=== PATIENT | female | born 1960 | race Caucasian/White ===

== ENCOUNTER 2017-03-10 18:33 | Inpatient (IN) | payer OTHER ==
[~2017-03-10] VITALS: Ht 157.5 cm; Wt 80.7 kg
[2017-03-10] MEDS ORDERED: SOD CHLORIDE 0.9% 500 ML IV STA (19:09)
[2017-03-10 19:27] LABS: ADD SCAN DIFF NO
[2017-03-10 19:30] LABS: BASOPHILS % 0.1 % (0.0-2.0); EOSINOPHILS % 0.2 % (0.0-7.0); HEMATOCRIT 40.6 % (37.0-47.0); HEMOGLOBIN 13.3 g/dl (12.0-16.0); LYMPHOCYTES % 10.9 % (15.0-51.0); MEAN CORPUSCULAR HGB CONC 32.8 g/dl (32.0-37.0); MEAN CORPUSCULAR VOLUME 88.6 fl (82.0-101.0); MEAN PLATELET VOLUME 9.2 fl (7.4-10.4); MONOCYTE # 0.7 10^3/ul (0.3-0.9); MONOCYTES % 7.7 % (0.0-11.0); NEUTROPHIL # 7.5 10^3/ul (1.6-7.5); NEUTROPHILS % 80.8 % (39.0-77.0); PLATELET COUNT 150 10^3/UL (140-415); RED BLOOD COUNT 4.58 10^6/ul (4.20-5.40); RED CELL DISTRIBUTION WIDTH 14.4 % (11.5-14.5); WHITE BLOOD COUNT 9.3 10^3/ul (4.8-10.8)
[2017-03-10] MEDS ORDERED: GABA100C14 PO (19:37)
[2017-03-10] MEDS ORDERED: GLIM4TAB PO (19:38)
[2017-03-10] MEDS ORDERED: CIPR500T4 PO (19:38)
[2017-03-10] MEDS ORDERED: PRAV20TA63 PO (19:38)
[2017-03-10] MEDS ORDERED: FAMO20TA18 PO (19:39)
[2017-03-10] MEDS ORDERED: BENA20TA48 PO (19:39)
[2017-03-10] MEDS ORDERED: ONDA4TAB95 PO (19:39)
[2017-03-10] MEDS ORDERED: ACET-141 PO (19:39)
[2017-03-10 19:43] LABS: ALBUMIN 4.2 g/dl (3.3-4.9); CHLORIDE 99 mmol/L (97-110)
[2017-03-10 19:44] LABS: POTASSIUM 3.9 mmol/L (3.5-5.1); SODIUM 135 mmol/L (135-144)
[2017-03-10 19:46] LABS: ALBUMIN/GLOBULIN RATIO 1.05; ALKALINE PHOSPHATASE 61 IU/L (42-121); ANION GAP 21 (8-16); ASPARTATE AMINO TRANSFERASE 44 IU/L (15-46); BILIRUBIN,INDIRECT 0.1 mg/dl (0-1.1); BILIRUBIN,TOTAL 0.1 mg/dl (0.2-1.3); CARBON DIOXIDE 19 mmol/L (21-31); CREATININE 2.12 mg/dl (0.44-1.00); TOTAL PROTEIN 8.2 g/dl (6.1-8.1)
[2017-03-10 19:47] LABS: ALANINE AMINOTRANSFERASE 51 IU/L (13-69); BLOOD UREA NITROGEN 37 mg/dl (7-20); CALCIUM 8.6 mg/dl (8.4-10.2)
[2017-03-10 19:49] LABS: GLUCOSE 43 mg/dl (70-220)
[2017-03-10] MEDS ORDERED: DEXTROSE 50% 50 ML SYRINGE IV STA (19:50)
[2017-03-10] MEDS ORDERED: DEXTROSE 50% 50 ML SYRINGE ONE (19:51)
--- NOTE | 2017-03-10 19:59 | ERA ---
ER Documentation Chief Complaint Date/Time DATE: 03/10/17 TIME: 19:57 Chief Complaint PT [facility] FOR HYPOGLYCEMIA BS WAS 29 HPI 56-year-old woman brought in by EMS for hypoglycemia while at her doctor's office. She had a syncopal episode while there blood sugar was low to 29, she was given glucose with an improvement in mental status. Over the last 4-5 days patient has had multiple episodes of clear nonbloody nonbilious emesis and loose stools and diarrhea, but denies blood per rectum or melena. Patient was recently diagnosed with prediabetes and has started using glimepiride daily, and about 2 days she was prescribed ciprofloxacin (? UTI), but she does not know for what. She denies cough, no chest pain or shortness of breath, no rash , no calf or leg swelling, no vomiting or diarrhea. Syncopal episode today was witnessed there was no seizure activity. Patient was transported here by EMS without further complications. ROS All systems reviewed and are negative except as per history of present illness. Medications Home Meds Reported Medications Acetaminophen* (Acetaminophen*) 500 MG Extra Strength Tablet, 500 MG PO Q4H Y for PAIN AND OR ELEVATED TEMP, TAB 03/10/17 Benazepril Hcl* (Benazepril Hcl*) 20 Mg Tablet, 20 MG PO DAILY, #30 TAB 03/10/17 Famotidine* (Famotidine*) 20 Mg Tablet, 20 MG PO DAILY, #30 TAB 03/10/17 Ondansetron Hcl* (Ondansetron Hcl*) 4 Mg Tablet, 4 MG PO Q6H Y for NAUSEA AND/ OR VOMITING, TAB 03/10/17 Glimepiride* (Glimepiride*) 4 Mg Tablet, 4 MG PO DAILY, TAB 03/10/17 Ciprofloxacin Hcl* (Ciprofloxacin Hcl*) 500 Mg Tablet, 500 MG PO BID, #14 TAB 03/10/17 Pravastatin Sodium* (Pravastatin Sodium*) 20 Mg Tablet, 20 MG PO HS, TAB 03/10/17 Gabapentin* (Gabapentin*) 100 Mg Capsule, 200 MG PO QHS, #180 CAP 03/10/17 Allergies Allergies: Coded Allergies: No Known Allergy (Unverified , 03/10/17) PMhx/Soc Prediabetic, hypercholesterolemia, hypertension History of Surgery: Yes () Hx Cardiac Disorders: Yes (HTN, CHOLESTEROL) Hx Miscellaneous Medical Probl: Yes (DM) Hx Alcohol Use: No Hx Substance Use: No Hx Tobacco Use: No Smoking Status: Never smoker FmHx Family History: diabetes Physical Exam Vitals Vital Signs Date Time Temp Pulse Resp B/P Pulse Ox O2 Delivery O2 Flow Rate FiO2 03/10/17 18:42 98.6 83 23 128/60 100 Physical Exam GENERAL: Well-developed, well-nourished, well-hydrated, in no apparent distress , looks nontoxic in appearance HEENT: Moist mucous membranes, pink conjunctiva, no cervical spine tenderness or step-off deformities, no goiter, no jaundice or icterus, extraocular movements intact without pain. No submandibular induration, and no pharyngeal erythema NEURO: Alert and oriented 3, cranial nerves II through XII intact bilaterally, pupils equal round reactive to light, no focal deficits or facial asymmetry, sensation intact distally Strength 5/5 in upper and lower extremities bilaterally CARDIAC: Regular rate and rhythm, no murmurs rubs or gallops LUNGS: Clear bilaterally no wheezing crackles or stridor ABDOMEN: Soft nontender, no guarding, no rigidity, no rebound, no psoas sign no obturator sign. Normoactive bowel sounds SKIN: Warm and dry to touch, no abrasions, contusions, or hematomas, no lacerations, no ecchymosis, no target lesions, and without ulcers EXTREMITIES: No clubbing cyanosis or edema, calves are bilaterally symmetrical, no Homans sign, no popliteal cord sign. Distal pulses equal and bilateral PSYCH: Normal affect without agitation or irritability Result Diagram: 03/10/17191403/10/171914 Results 24 hrs Laboratory Tests Test 03/10/17 18:37 03/10/17 19:15 03/10/17 20:57 Bedside Glucose 83mg/dL 111mg/dL White Blood Count 9.310^3/ul Red Blood Count 4.5810^6/ul Hemoglobin 13.3g/dl Hematocrit 40.6% Mean Corpuscular Volume 88.6fl Mean Corpuscular Hemoglobin 29.0pg Mean Corpuscular Hemoglobin Concent 32.8g/dl Red Cell Distribution Width 14.4% Platelet Count 82892^3/UL Mean Platelet Volume 9.2fl Neutrophils % 80.8% Lymphocytes % 10.9% Monocytes % 7.7% Eosinophils % 0.2% Basophils % 0.1% Nucleated Red Blood Cells % 0.0/100WBC Neutrophils # 7.510^3/ul Lymphocytes # 1.010^3/ul Monocytes # 0.710^3/ul Eosinophils # 0.010^3/ul Basophils # 0.010^3/ul Nucleated Red Blood Cells # 0.010^3/ul Urine Color LT. YELLOW Urine Clarity CLEAR Urine pH 5.0 Urine Specific [place] 1.015 Urine Ketones NEGATIVE Urine Nitrite NEGATIVE Urine Bilirubin NEGATIVE Urine Urobilinogen 0.2 E.U./dL Urine Leukocyte Esterase NEGATIVE Urine Hemoglobin NEGATIVE Urine Glucose NEGATIVE% Urine Total Protein NEGATIVE Sodium Level 135mmol/L Potassium Level 3.9mmol/L Chloride Level 99mmol/L Carbon Dioxide Level 19mmol/L Anion Gap 21 Blood Urea Nitrogen 37mg/dl Creatinine 2.12mg/dl Glucose Level 43mg/dl Calcium Level 8.6mg/dl Total Bilirubin 0.1mg/dl Direct Bilirubin 0.00mg/dl Indirect Bilirubin 0.1mg/dl Aspartate Amino Transf (AST/SGOT) 44IU/L Alanine Aminotransferase (ALT/SGPT) 51IU/L Alkaline Phosphatase 61IU/L Troponin I < 0.012ng/ml Total Protein 8.2g/dl Albumin 4.2g/dl Globulin 4.00g/dl Albumin/Globulin Ratio 1.05 Lipase 171U/L Current Medications Medications (Trade) Dose Ordered Sig/Danna Route PRN Reason Start Time Stop Time Status Last Admin Dose Admin Sodium Chloride (NS) 500 ml @ 500 mls/hr Q1H STAT IV 03/10/17 19:09 03/10/17 20:08 DC 03/10/17 20:03 Dextrose (D50w Syringe) 50 ml ONCE STAT IV 03/10/17 19:50 03/10/17 19:51 DC 03/10/17 20:03 Dextrose (D50w Syringe) 50 ml STK-MED ONCE .ROUTE 03/10/17 19:51 03/10/17 19:52 DC Procedures/[facility] IV line was established patient was placed on panel monitor rhythm strip revealed a sinus rhythm at about 80 bpm with upright P and T waves. Patient was afebrile. EKG performed, read by me: 81 bpm, normal sinus rhythm, normal axis, no acute ST segment changes, narrow QRS complex, with good R-wave progression in precordial leads. Patient developed another episode of altered mentation and hypoglycemia, blood sugar was about 43, we treated her here with dextrose 25 g IV and also gave her food and juice to eat. She had immediate improvement in mental status and blood sugar was rechecked and was normal. CBC was unremarkable, electrolytes revealed dehydration and acute kidney injury with a BUN/creatinine of 37/2.1, liver function tests were normal, troponin was negative. Urine analysis was negative for infection. I administered about 1 L normal saline intravenously, and patient required another dose of dextrose 25 g IV for a second episode of hypoglycemia. CT scan of the abdomen and pelvis was performed, given the patient's symptoms. There was no acute inflammatory or infectious pathology noted, vascular structures were unremarkable. Please refer radiologist's dictation for full report. Patient will be admitted to telemetry setting for continued medical management and endocrinology consultation. Departure Diagnosis: Primary Impression: Hypoglycemia Additional Impressions: Dehydration Vomiting and diarrhea Gastroenteritis Acute kidney injury Condition: ANDREW Corona MD March 10, 2017 19:59
[2017-03-10 20:02] LABS: TROPONIN-I < 0.012 ng/ml (0.00-0.12)
--- NOTE | 2017-03-10 20:04 | RADRPT ---
PROCEDURE: CT Abdomen and Pelvis without contrast. CLINICAL INDICATION: Abdominal pelvic pain. TECHNIQUE: CT scan of the abdomen and pelvis without contrast was performed on a multidetector hig h-resolution CT scanner. The patient was scanned without intravenous contrast. Coronal and sagittal reformatted images were obtained from the axial source images. Images were reviewed on a high-resol [employer] PACS workstation. The total exam CTDI equals 16.83 mGy and the total exam DLP equals 998.35 mG y-cm. One or more of the following dose reduction techniques were used: - Automated exposure control. - Adjustment of the mA and/or kV according to patient size. - Use of iterative reconstruction technique. COMPARISON: None. FINDINGS: CT abdomen: The lung bases are remarkable for patchy subsegmental atelectasis within the lung bases bilaterally. There is a tiny calcified granuloma in the posterior right lung base. Small calcified lymph node i s seen in the subcarinal space typical of old granulomatous disease. The heart size is normal, with out pericardial thickening or effusion. The liver is normal in size and fatty infiltrated without f ocal mass or intrahepatic biliary dilatation. The spleen is normal in size and homogeneous in densi ty. The stomach is distended and filled with fluid, but is otherwise grossly unremarkable. The mckeon creas as visualized is normal. The gallbladder and biliary tree are unremarkable and there is no ev idence for biliary dilatation. The adrenal glands are symmetric and normal. The kidneys are symmet rically unremarkable as well. No renal calculus or obstructive uropathy or mass lesion is seen. The aorta is of normal caliber. There is no retroperitoneal lymphadenopathy. The parviz hepatis reg ion is clear. The bowel and mesentery, as visualized, are equally unremarkable. CT pelvis: The small bowel loops situated within the pelvis are unremarkable. The pelvic organs are normal. T he pelvic sidewalls and inguinal regions are clear. The sigmoid colon and rectum are unremarkable. No mass or adenopathy is seen. No free fluid is present. No acute inflammation is identified at thi s time. The surrounding osseous structures are remarkable for degenerative spondylosis of the spine. No ost eolytic or osteoblastic lesion is detected. IMPRESSION: 1. Diffuse fatty infiltration of the liver. 2. Benign old granulomatous disease. 3. No focal acute inflammatory process. RPTAT: HMJB .Jin Henry MD, MD Date Time Electronically viewed and signed by .Jin Henry MD, MD on 03/10/2017 20:03 .B/
[2017-03-10 20:19] LABS: URINE BILIRUBIN (Dip) NEGATIVE (NEGATIVE); URINE BLOOD (Dip) NEGATIVE (NEGATIVE); URINE COLOR LT. YELLOW (YELLOW); URINE GLUCOSE (Dip) NEGATIVE (NEGATIVE); URINE KETONES (Dip) NEGATIVE (NEGATIVE); URINE LEUKOCYTE ESTERASE (Dip) NEGATIVE (NEGATIVE); URINE NITRITE (Dip) NEGATIVE (NEGATIVE); URINE UROBILINOGEN (Dip) 0.2 E.U./dL (0.1-1.0)
[2017-03-10 20:31] LABS: ADD UMIC NO; URINE TOTAL PROTEIN (Dip) NEGATIVE (NEGATIVE)
[2017-03-10 22:23] VITALS: BP 142/70; RESP 18
[2017-03-10 23:00] VITALS: BP 142/70; PULSE 89; RESP 20; Ht 157.5 cm; Wt 80.7 kg
[2017-03-10] MEDS ORDERED: FAMOTIDINE 20 MG TAB PO PRN (23:00)
[2017-03-10] MEDS ORDERED: ACETAMINOPHEN 325 MG TAB PO PRN (23:00)
[2017-03-10] MEDS ORDERED: ONDANSETRON 4 MG INJ IV PRN (23:00)
[2017-03-10] MEDS ORDERED: DEXTROSE 5%-0.45% NACL 1,000 ML IV SCH (23:00)
[2017-03-10] MEDS ORDERED: morphine 2 MG INJ IV PRN (23:00)
[2017-03-11] MEDS: GABAPENTIN 100 MG CAP PO SCH ×2 (00:22→21:31)
[2017-03-11] MEDS: HEPARIN 5,000 UNIT/0.5 ML VIAL SC SCH ×3 (00:23→21:32)
[2017-03-11] MEDS: DEXTROSE 10% 1,000 ML IV SCH ×2 (00:54→12:36)
[2017-03-11] MEDS: ACCU-CHEK XX SCH ×6 (00:54→21:30)
[2017-03-11] MEDS ORDERED: DEXTROSE 50% 50 ML SYRINGE IV ONE (01:00)
[2017-03-11 05:09] LABS: ADD SCAN DIFF NO
[2017-03-11 05:16] LABS: BASOPHILS % 0.2 % (0.0-2.0); EOSINOPHILS % 0.5 % (0.0-7.0); HEMATOCRIT 36.5 % (37.0-47.0); LYMPHOCYTES # 1.4 10^3/ul (0.8-2.9); LYMPHOCYTES % 21.5 % (15.0-51.0); MEAN CORPUSCULAR HEMOGLOBIN 28.8 pg (29.0-33.0); MEAN CORPUSCULAR HGB CONC 32.9 g/dl (32.0-37.0); MEAN CORPUSCULAR VOLUME 87.7 fl (82.0-101.0); MEAN PLATELET VOLUME 9.5 fl (7.4-10.4); MONOCYTE # 0.7 10^3/ul (0.3-0.9); MONOCYTES % 10.2 % (0.0-11.0); NEUTROPHIL # 4.5 10^3/ul (1.6-7.5); NEUTROPHILS % 67.3 % (39.0-77.0); PLATELET COUNT 145 10^3/UL (140-415); RED BLOOD COUNT 4.16 10^6/ul (4.20-5.40); RED CELL DISTRIBUTION WIDTH 14.5 % (11.5-14.5); WHITE BLOOD COUNT 6.7 10^3/ul (4.8-10.8)
[2017-03-11 05:49] LABS: ALBUMIN 3.4 g/dl (3.3-4.9); ALBUMIN/GLOBULIN RATIO 1.03; CALCIUM 8.1 mg/dl (8.4-10.2); CREATININE 1.8 mg/dl (0.44-1.00); PHOSPHORUS 3.7 mg/dl (2.5-4.9); POTASSIUM 4.6 mmol/L (3.5-5.1); TOTAL PROTEIN 6.7 g/dl (6.1-8.1)
[2017-03-11] MEDS ORDERED: GLIMEPIRIDE 4 MG TAB PO SCH (07:30)
[2017-03-11 08:08] VITALS: BP 122/68; RESP 18
--- NOTE | 2017-03-11 08:45 | HP ---
DATE OF ADMISSION: 03/10/2017 CHIEF COMPLAINT: Hypoglycemia, altered mentation, nausea, and vomiting. HISTORY OF PRESENT ILLNESS: The patient is a 56-year-old female with a history of type 2 diabetes, hypertension, and dyslipidemia who was sent from a clinic for hypoglycemia and altered mentation. T patient reported nausea and vomiting of 3 days' duration with emesis described as nonbilious and nonbloody. She also reported diarrhea described as loose stool. The patient was recently diagnosed with diabetes and has been started on glimepiride 4 mg daily. Today, she was seen at the clinic wh ere she was found to be altered, and when her blood glucose was checked, it was 29. She was given s ome dextrose with improvement in her mentation, but 911 was called, and the patient was brought to [facility] ER by ambulance. Currently, she is admitted to the floor and is in stable condition even though her blood sugar had been fluctuating. Of note, the patient has recently been diagnosed with a UTI a nd has been taking ciprofloxacin. When the patient presented to the ER, her vitals were stable. Her point of care glucose was 83, but on BMP, it was 43. Creatinine 2.12, BUN 37, bicarbonate 19, anion gap 21. Otherwise, CBC and CMP are within normal limits. CT abdomen and pelvis without contrast shows diffuse fatty infiltration o f the liver as well as benign old granulomatous disease without focal acute inflammatory process. REVIEW OF SYSTEMS: A 12-point review of systems was performed and negative except as mentioned in H PI. PAST MEDICAL HISTORY: As per HPI. PAST SURGICAL HISTORY: . SOCIAL HISTORY: Denied a history of tobacco, alcohol, or illicit drug use. ALLERGIES: NO KNOWN DRUG ALLERGIES. HOME MEDICATIONS: 1. Benazepril. 2. Pravastatin. 3. Tylenol. 4. Gabapentin. 5. Pepcid. 6. Zofran. 7. Glimepiride. 8. Ciprofloxacin. PHYSICAL EXAMINATION: VITAL SIGNS: Stable. GENERAL: No acute distress, answering questions appropriately. HEENT: No obvious head deformity. Pupils are reactive to light. Extraocular muscles intact. CARDIOVASCULAR: Regular rate and rhythm with no extra heart sounds. LUNGS: Clear. ABDOMEN: Soft, nontender, nondistended. Positive bowel sounds. EXTREMITIES: No edema. NEUROLOGIC: No focal deficits. LABORATORY: Pertinent positive results as mentioned in the HPI. IMPRESSION: 1. Hypoglycemia. 2. Altered mentation secondary to hypoglycemia, currently resolved. 3. Presumed acute kidney injury from prerenal etiology as a result of vomiting and diarrhea. 4. Diarrhea. 5. History of hypertension. 6. History of diabetes. 7. History of dyslipidemia. PLAN: Given her blood glucose has been fluctuating even on D5 IV fluid, I will switch to D10. She will be placed on a diabetic diet. We will monitor her blood glucose frequently. We will follow up on her kidney function closely, but it seems like it is an acute event, even though it is possibly acute on chronic, given history of diabetes and hypertension. In any case, we will avoid any nephro toxins, and if no improvement in kidney function or if it worsens, we will obtain a renal ultrasound and nephrology consult. The patient was recently diagnosed with UTI, so we will check a urine cult ure. In the meantime, we will continue her home Cipro. Further workup and management per clinical course. Dictated By: ABHIJEET COSTA/ILEANA Conf#: [id number] DID#: [id number]
[2017-03-11] MEDS: CIPROFLOXACIN 500 MG TAB PO SCH ×2 (09:00→21:31)
[2017-03-11] MEDS: BENAZEPRIL 20 MG TAB PO SCH (09:01)
--- NOTE | 2017-03-11 11:22 | PN ---
Date/Time of Note Date/Time of Note DATE: 03/11/17 TIME: 11:19 Assessment/Plan VTE Prophylaxis VTE Prophylaxis Intervention: heparin Lines/Catheters IV Catheter Type (from Nrs): Peripheral IV Assessment/Plan Chief Complaint/Hosp Course S: 4 days diarrhea vomiting, Subjective fever. Other family members w flu fever. Denies any recent cough sore throat runny nose. No recent travel, or ill foods. Sunday visited clinic received Cipro. Symptoms continued and Sunday and revisited 2 other clinics. Today however diarrhea nausea vomiting have improved. Objective: Vital signs stable Physical exam No pallor icterus adenopathy Regular Clear Bs + nt nd, no r/r/g. No CVAT No edema Assessment plan 1. Acute renal failure. Stable improved. DC MARSHA inhibitor. Ultrasound/CT negative for obstruction. 2. Hypoglycemia, DC Amaryl for now. May go home on diet therapy. 3. Diabetes/metabolic syndrome/dyslipidemia Problems: Exam/Review of Systems Vital Signs Vitals Vital Signs Date Time Temp Pulse Resp B/P Pulse Ox O2 Delivery O2 Flow Rate FiO2 03/11/17 08:08 98.6 86 18 122/68 94 03/10/17 23:00 Room Air Intake and Output 03/10/17 03/10/17 03/11/17 15:00 23:00 07:00 Intake Total 530 ml Balance 530 ml Results Result Diagram: 03/11/17 0430 03/11/17 0430 Results 24 hrs Laboratory Tests Test 03/10/17 18:37 03/10/17 19:15 03/10/17 20:57 03/10/17 21:37 Bedside Glucose 83 111 88 White Blood Count 9.3 Red Blood Count 4.58 Hemoglobin 13.3 Hematocrit 40.6 Mean Corpuscular Volume 88.6 Mean Corpuscular Hemoglobin 29.0 Mean Corpuscular Hemoglobin Concent 32.8 Red Cell Distribution Width 14.4 Platelet Count 150 Mean Platelet Volume 9.2 Neutrophils % 80.8 H Lymphocytes % 10.9 L Monocytes % 7.7 Eosinophils % 0.2 Basophils % 0.1 Nucleated Red Blood Cells % 0.0 Neutrophils # 7.5 Lymphocytes # 1.0 Monocytes # 0.7 Eosinophils # 0.0 Basophils # 0.0 Nucleated Red Blood Cells # 0.0 Urine Color LT. YELLOW Urine Clarity CLEAR Urine pH 5.0 Urine Specific [place] 1.015 Urine Ketones NEGATIVE Urine Nitrite NEGATIVE Urine Bilirubin NEGATIVE Urine Urobilinogen 0.2 E.U./dL Urine Leukocyte Esterase NEGATIVE Urine Hemoglobin NEGATIVE Urine Glucose NEGATIVE Urine Total Protein NEGATIVE Sodium Level 135 Potassium Level 3.9 Chloride Level 99 Carbon Dioxide Level 19 L Anion Gap 21 H Blood Urea Nitrogen 37 H Creatinine 2.12 H Glucose Level 43 *L Calcium Level 8.6 Total Bilirubin 0.1 L Direct Bilirubin 0.00 Indirect Bilirubin 0.1 Aspartate Amino Transf (AST/SGOT) 44 Alanine Aminotransferase (ALT/SGPT) 51 Alkaline Phosphatase 61 Troponin I < 0.012 Total Protein 8.2 H Albumin 4.2 Globulin 4.00 H Albumin/Globulin Ratio 1.05 Lipase 171 Test 03/11/17 00:34 03/11/17 01:31 03/11/17 04:30 03/11/17 05:21 Bedside Glucose 50 L 149 140 White Blood Count 6.7 # Red Blood Count 4.16 L Hemoglobin 12.0 Hematocrit 36.5 L Mean Corpuscular Volume 87.7 Mean Corpuscular Hemoglobin 28.8 L Mean Corpuscular Hemoglobin Concent 32.9 Red Cell Distribution Width 14.5 Platelet Count 145 Mean Platelet Volume 9.5 Neutrophils % 67.3 Lymphocytes % 21.5 Monocytes % 10.2 Eosinophils % 0.5 Basophils % 0.2 Nucleated Red Blood Cells % 0.0 Neutrophils # 4.5 Lymphocytes # 1.4 Monocytes # 0.7 Eosinophils # 0.0 Basophils # 0.0 Nucleated Red Blood Cells # 0.0 Sodium Level 133 L Potassium Level 4.6 Chloride Level 109 # Carbon Dioxide Level 18 L Anion Gap 11 # Blood Urea Nitrogen 30 H Creatinine 1.80 H Glucose Level 151 # Fasting Glucose 151 H Hemoglobin A1c 5.7 Calcium Level 8.1 L Phosphorus Level 3.7 Magnesium Level 2.0 Total Bilirubin 0.0 L Direct Bilirubin 0.00 Indirect Bilirubin 0.0 Aspartate Amino Transf (AST/SGOT) 35 Alanine Aminotransferase (ALT/SGPT) 47 Alkaline Phosphatase 55 Total Protein 6.7 # Albumin 3.4 Globulin 3.30 H Albumin/Globulin Ratio 1.03 Test 03/11/17 09:08 Bedside Glucose 115 Medications Medications Current Medications Gabapentin (Neurontin) 100 mg HS PO Last administered on 03/11/17t 00:22; Admin Dose 100 MG; Start 03/10/17 at 23:00 Benazepril HCl (Lotensin) 20 mg DAILY PO Last administered on 03/11/17 09:01; Admin Dose 20 MG; Start 03/11/17 at 09:00 Famotidine (Pepcid) 20 mg DAILY PRN PO NAUSEA AND VOMITING Last administered on 03/11/17 09:14; Admin Dose 20 MG; Start 03/10/17 at 23:00 Ondansetron HCl (Zofran Inj) 4 mg Q6H PRN IV NAUSEA AND/OR VOMITING; Start at 23:00 Acetaminophen (Tylenol Tab) 650 mg Q6H PRN PO PAIN AND OR ELEVATED TEMP; Start 03/10/17 at 23:00 Morphine Sulfate (morphine) 2 mg Q4H PRN IV SEVERE PAIN; Start 03/10/17 at 23: 00 Heparin Sodium (Porcine) (Heparin (5000 Units/0.5 ml)) 5,000 unit BID SC Last administered on 03/11/17 09:08; Admin Dose 5,000 UNIT; Start 03/10/17 at 23:00 Diagnostic Test (Pha) 1 ea 1 ea Q4 XX Last administered on 03/11/17 09:08; Admin Dose 1 EA; Start 03/11/17 at 01:00 Dextrose (D10w) 1,000 ml @ 100 mls/hr Q10H IV Last administered on 03/11/17 00:54; Admin Dose 100 MLS/HR; Start 03/11/17 at 01:00 Ciprofloxacin (Cipro) 500 mg BID PO Last administered on 03/11/17 09:00; Admin Dose 500 MG; Start 03/11/17 at 09:00 WILBERTO RAMEY MD March 11, 2017 11:22
[2017-03-11 11:39] LABS: ADD UMIC NO; URINE BILIRUBIN (Dip) NEGATIVE (NEGATIVE); URINE BLOOD (Dip) NEGATIVE (NEGATIVE); URINE COLOR LT. YELLOW (YELLOW); URINE GLUCOSE (Dip) NEGATIVE (NEGATIVE); URINE KETONES (Dip) NEGATIVE (NEGATIVE); URINE LEUKOCYTE ESTERASE (Dip) NEGATIVE (NEGATIVE); URINE NITRITE (Dip) NEGATIVE (NEGATIVE); URINE TOTAL PROTEIN (Dip) NEGATIVE (NEGATIVE); URINE UROBILINOGEN (Dip) 0.2 E.U./dL (0.1-1.0)
[2017-03-11] MEDS ORDERED: FAMOTIDINE 20 MG TAB PO SCH ×2 (12:30→22:02)
[2017-03-11 20:56] VITALS: BP 98/53; RESP 18
[2017-03-11 21:30] VITALS: BP 102/50
[2017-03-11] MEDS ORDERED: FAMOTIDINE 20 MG TAB PO ONE (22:30)
[2017-03-12] MEDS: ACCU-CHEK XX SCH ×4 (01:12→13:00)
[2017-03-12 05:10] LABS: ADD SCAN DIFF NO
[2017-03-12 05:21] LABS: BASOPHILS % 0.5 % (0.0-2.0); EOSINOPHILS # 0.1 10^3/ul (0.0-0.5); EOSINOPHILS % 1.7 % (0.0-7.0); HEMATOCRIT 36.5 % (37.0-47.0); LYMPHOCYTES # 2.1 10^3/ul (0.8-2.9); LYMPHOCYTES % 36.9 % (15.0-51.0); MEAN CORPUSCULAR HEMOGLOBIN 29.2 pg (29.0-33.0); MEAN CORPUSCULAR HGB CONC 32.9 g/dl (32.0-37.0); MEAN CORPUSCULAR VOLUME 88.8 fl (82.0-101.0); MEAN PLATELET VOLUME 9.5 fl (7.4-10.4); MONOCYTE # 0.7 10^3/ul (0.3-0.9); MONOCYTES % 11.4 % (0.0-11.0); NEUTROPHIL # 2.8 10^3/ul (1.6-7.5); NEUTROPHILS % 49.2 % (39.0-77.0); PLATELET COUNT 145 10^3/UL (140-415); RED BLOOD COUNT 4.11 10^6/ul (4.20-5.40); RED CELL DISTRIBUTION WIDTH 14.6 % (11.5-14.5); WHITE BLOOD COUNT 5.7 10^3/ul (4.8-10.8)
[2017-03-12 05:40] LABS: ALBUMIN 3.3 g/dl (3.3-4.9); BILIRUBIN,INDIRECT 0.1 mg/dl (0-1.1); BILIRUBIN,TOTAL 0.1 mg/dl (0.2-1.3); CALCIUM 8.6 mg/dl (8.4-10.2); CREATININE 1.76 mg/dl (0.44-1.00); MAGNESIUM 2.1 mg/dl (1.7-2.5); PHOSPHORUS 2.9 mg/dl (2.5-4.9); TOTAL PROTEIN 6.6 g/dl (6.1-8.1)
[2017-03-12 06:08] LABS: INR 1.13; PROTIME 14.5 Sec (12.2-14.2); PT RATIO 1.1; THYROID STIMULATING HORMONE 1.09 MIU/L (0.465-4.680)
[2017-03-12 08:09] VITALS: BP 117/61; RESP 18
[2017-03-12] MEDS ORDERED: FAMOTIDINE 20 MG TAB PO SCH (09:00)
[2017-03-12] MEDS: BENAZEPRIL 20 MG TAB PO SCH (09:46)
[2017-03-12] MEDS: CIPROFLOXACIN 500 MG TAB PO SCH (09:46)
[2017-03-12] MEDS: HEPARIN 5,000 UNIT/0.5 ML VIAL SC SCH (09:50)
--- NOTE | 2017-03-12 11:30 | RADRPT ---
PROCEDURE: XR Chest 1 View. CLINICAL INDICATION: Abnormal breath sounds, syncope. TECHNIQUE: AP view of the chest was obtained. COMPARISON: None. FINDINGS: The cardiomediastinal silhouette is within normal limits. Subsegmental atelectasis is seen at the vicenta ng bases. No consolidations are identified. No pneumothorax is seen. Osseous structures are intact . IMPRESSION: Subsegmental atelectasis at the lung bases. RPTAT: AA .Baljeet Lambert MD, MD Date Time Electronically viewed and signed by .Baljeet Lambert MD, on 03/12/2017 11:30 .P/
--- NOTE | 2017-03-12 13:41 | DS ---
Date/Time of Note Date/Time of Note DATE: 03/12/17 TIME: 13:34 Discharge Summary Admission/Discharge Info Admit Date/Time March 10, 2017 at 21:00 Discharge Date/Time Final Diagnosis 1. Hypoglycemia, resolved 2. Dehydration, improved 3. Acute gastroenteritis, resolved 4. DM, off of glimepiride, follow up with PCP in one week 5. CKD, stage 3, follow up with PCP 6. Hypertension, stable 7. Dyslipidemia, on statin Patient Condition: Stable Hospital Course The patient is a 56-year-old female with a history of type 2 diabetes, hypertension, and dyslipidemia who was sent from a clinic for hypoglycemia and altered mentation. The patient reported nausea and vomiting of 3 days' duration with emesis described as nonbilious and nonbloody. She also reported diarrhea described as loose stool. The patient was recently diagnosed with diabetes and has been started on glimepiride 4 mg daily. Today, she was seen at the clinic where she was found to be altered, and when her blood glucose was checked, it was 29. She was given some dextrose with improvement in her mentation, but 911 was called, and the patient was brought to the ER by ambulance. Currently, she is admitted to the floor and is in stable condition even though her blood sugar had been fluctuating. Of note, the patient has recently been diagnosed with a UTI and has been taking ciprofloxacin. After admission, glimepiride has been held. Blood glucose has been stable. Patient has CKD stage 3 with Cr 1.76 on 03/12/2017. Patient has been taking glimepiride for years. The reason that she developed hypoglycemia is likely due to nausea/vomiting and poor intake plus renal failure. Patient is asymptomatic today, tolerates diet well without nausea or vomiting. I will keep holding glimepiride and have her follow up with her PCP in one week. Home Meds Reported Medications Acetaminophen* (Acetaminophen*) 500 MG Extra Strength Tablet, 500 MG PO Q4H Y for PAIN AND OR ELEVATED TEMP, TAB 03/10/17 Benazepril Hcl* (Benazepril Hcl*) 20 Mg Tablet, 20 MG PO DAILY, #30 TAB 03/10/17 Famotidine* (Famotidine*) 20 Mg Tablet, 20 MG PO DAILY, #30 TAB 03/10/17 Ondansetron Hcl* (Ondansetron Hcl*) 4 Mg Tablet, 4 MG PO Q6H Y for NAUSEA AND/ OR VOMITING, TAB 03/10/17 Ciprofloxacin Hcl* (Ciprofloxacin Hcl*) 500 Mg Tablet, 500 MG PO BID, #14 TAB 03/10/17 Pravastatin Sodium* (Pravastatin Sodium*) 20 Mg Tablet, 20 MG PO HS, TAB 03/10/17 Gabapentin* (Gabapentin*) 100 Mg Capsule, 200 MG PO QHS, #180 CAP 03/10/17 Discontinued Reported Medications Glimepiride* (Glimepiride*) 4 Mg Tablet, 4 MG PO DAILY, TAB 03/10/17 Follow-up Plan PCP in one week Primary Care Provider [facility] Pending Labs Laboratory Tests Test 03/11/17 18:02 03/11/17 21:28 03/12/17 01:10 03/12/17 04:45 Bedside Glucose 87mg/dL (70-220) 119mg/dL (70-220) 121mg/dL (70-220) White Blood Count 5.710^3/ul (4.8-10.8) Red Blood Count 4.1110^6/ul (4.20-5.40) Hemoglobin 12.0g/dl (12.0-16.0) Hematocrit 36.5% (37.0-47.0) Mean Corpuscular Volume 88.8fl (82.0-101.0) Mean Corpuscular Hemoglobin 29.2pg (29.0-33.0) Mean Corpuscular Hemoglobin Concent 32.9g/dl (32.0-37.0) Red Cell Distribution Width 14.6% (11.5-14.5) Platelet Count 51926^3/UL (140-415) Mean Platelet Volume 9.5fl (7.4-10.4) Neutrophils % 49.2% (39.0-77.0) Lymphocytes % 36.9% (15.0-51.0) Monocytes % 11.4% (0.0-11.0) Eosinophils % 1.7% (0.0-7.0) Basophils % 0.5% (0.0-2.0) Nucleated Red Blood Cells % 0.0/100WBC (0.0-0.0) Neutrophils # 2.810^3/ul (1.6-7.5) Lymphocytes # 2.110^3/ul (0.8-2.9) Monocytes # 0.710^3/ul (0.3-0.9) Eosinophils # 0.110^3/ul (0.0-0.5) Basophils # 0.010^3/ul (0.0-0.1) Nucleated Red Blood Cells # 0.010^3/ul (0.0-0.0) Prothrombin Time 14.5Sec (12.2-14.2) Prothrombin Time Ratio 1.1 INR International Normalized Ratio 1.13 Sodium Level 134mmol/L (135-144) Potassium Level 5.0mmol/L (3.5-5.1) Chloride Level 111mmol/L (97-110) Carbon Dioxide Level 18mmol/L (21-31) Anion Gap 10 (8-16) Blood Urea Nitrogen 30mg/dl (7-20) Creatinine 1.76mg/dl (0.44-1.00) Glucose Level 143mg/dl (70-220) Calcium Level 8.6mg/dl (8.4-10.2) Phosphorus Level 2.9mg/dl (2.5-4.9) Magnesium Level 2.1mg/dl (1.7-2.5) Total Bilirubin 0.1mg/dl (0.2-1.3) Direct Bilirubin 0.00mg/dl (0.00-0.20) Indirect Bilirubin 0.1mg/dl (0-1.1) Aspartate Amino Transf (AST/SGOT) 27IU/L (15-46) Alanine Aminotransferase (ALT/SGPT) 42IU/L (13-69) Alkaline Phosphatase 57IU/L (42-121) Total Protein 6.6g/dl (6.1-8.1) Albumin 3.3g/dl (3.3-4.9) Globulin 3.30g/dl (1.3-3.2) Albumin/Globulin Ratio 1.00 Thyroid Stimulating Hormone (TSH) 1.090MIU/L (0.465-4.680) Test 03/12/17 05:33 03/12/17 07:53 03/12/17 12:34 Bedside Glucose 117mg/dL (70-220) 110mg/dL (70-220) 121mg/dL (70-220) JOCY PETTY MD March 12, 2017 13:41
--- NOTE | 2017-03-16 10:27 | EN ---
Date/Time of Note Date/Time of Note DATE: 03/16/17 TIME: 10:26 Event Note Medicine Medicine Event Note Contacted by pathology for abnormal urinalysis which shows ESBL with variable sensitivities According to chart patient is a patient of [facility]. I contacted this clinic they have no record of being seen or registered in the clinic. We will attempt to contact patient to inform her of abnormal urine results. RIMMA JEAN MD, [facility] March 16, 2017 10:27
== END 2017-03-12 15:07 | disposition home or self-care (01) | DRG 639 ==
LOC: E/R 18:33 → PP2 21:00
PROVIDERS: ADMIT Internal Medicine; ATTEND Internal Medicine
DX: E11.649 Type 2 diabetes mellitus with hypoglycemia without coma (principal); N17.9 Acute kidney failure, unspecified; N18.3 Chronic kidney disease, stage 3 (moderate); K52.9 Noninfective gastroenteritis and colitis, unspecified; E86.0 Dehydration; R41.82 Altered mental status, unspecified; R19.7 Diarrhea, unspecified; E78.5 Hyperlipidemia, unspecified; I12.9 Hypertensive chronic kidney disease with stage 1 through stage 4 chronic kidney disease, or unspecified chronic kidney disease
CPT/HCPCS: 36415; 71010; 74176; 80053; 81003; 82947; 82962; 83036; 83690; 83735; 84100; 84155; 84300; 84443; 84484; 85025; 85610; 87086; 93005; 96374; J1644; J7040; J7042

== ENCOUNTER 2017-03-20 15:04 | Outpatient (CLI) | payer OTHER ==
[~2017-03-20] VITALS: Ht 157.5 cm; Wt 80.0 kg
[~2017-03-20 15:04] MED LIST: ACET-141 PO; BENA20TA48 PO; CIPR500T4 PO; FAMO20TA18 PO; GABA100C14 PO; ONDA4TAB95 PO; PRAV20TA63 PO
[2017-03-20 15:10] VITALS: BP 118/65; PULSE 80; RESP 18; Ht 157.5 cm; Wt 80.0 kg
--- NOTE | 2017-03-20 16:05 | PN ---
Date/Time of Note Date/Time of Note DATE: 03/20/17 TIME: 16:01 Outpatient Progress Note Chief Complaint Hypoglycemia/diabetes/hypertension/hyperlipidemia HPI Hypoglycemia/patient was recently admitted to the hospital for the hypoglycemia , patient had nausea and vomiting, patient did not eat 4-3 days, and patient was hypoglycemic, at present the patient of blood sugar control, Diabetes/no polydipsia polyuria, no nausea vomiting, no impaired vision, no abdominal distention, no gastroparesis, patient blood sugar at present without medication is 100 and 3 in the morning and 109 for last 2 days, patient has not taken any blood sugar medication, Hypertension/no headache or dizziness, no lightheadedness, no local focal weakness, Hyperlipidemia/no xanthoma, on medication, no side effect of medication, Review of Systems Const: No Fever, no chills, no Wt. loss, no Fatigue, normal appetite, no diaphoresis. Eyes: No pain, no discharge, no redness, no visual change, no foreign body. ENT: No pain, no bleeding, no congestion, no sore throat, no dysphagia, no discharge or rhinitis. Lymph: No adenopathy, no tender nodes, no lymphedema. Resp: No SOB, no cough, no sputum, no wheezing, no chest pain. CV: No chest pain, no palpitaions, no KILGORE, no PND, no edema. GI: Normal appetite, no pain, no nausea, no vomiting, no diarrhea, no blood, no constipation. : No frequency, no urgency, no dysuria, no hematuria, no flank pain, no discharge, no bleeding. Musc: No bone/joint pain, no back pain, no neck pain, no knee pain, no restricted ROM. Skin: No rash, no skin lesions, no erythema, no laceration, no bruising, no pruritus. Neuro: No ZAPATA, no dizziness, no syncope, no seizure, no focal-weakness. Endo: No polyuria, no polydypsia, no dry-skin, no temp-intolerance. Psych: No hallucinations, no depression, no anxiety, no suicidal ideation. Ext: No edema, no pain, no ulcer, no weakness. Physical Exam Vital Signs Date Time Temp Pulse Resp B/P Pulse Ox O2 Delivery O2 Flow Rate FiO2 03/20/17 15:10 98.8 80 18 118/65 97 Room Air General Appearance: A 56 year-old female who appears well-developed, well- nourished, in no acute distress. HEENT: Head normocephalic, atraumatic. Pupils equal, round, reactive to light and accommodate. Sclerae are no jaundice. Nasal turbinates pink without erythema or nasal discharge. Mucous membranes pink and moist without lesions. Oropharynx clear without any exudate or discharge. NECK: Supple. Trachea midline, No thyromegaly, No cervical lymphadenopathy, No mass, No carotid bruits, No JVD, Carotid pulses 2+ bilaterally. PULMONARY: Clear to auscultaion bilaterally, No retractions, Chest expansion symmetric bilaterally, no rales, no ronchi, no dulness on percussion. CARDIAC: Normal SI and S2, Regular rate and rythm, no murmur, gallop, or rub. GASTROINTESTINAL: Abdomen is soft, non-tender, Non Rigid, No distention, Positive bowel sounds x4 quadrants, Liver normal. SKIN: Warm, dry, no rash, no bruise, no echmosis. EXTREMITIES: Bilateral lower extremities normal, no edema, no phlabitus, pulse palpable, no contracture. MUSCULOSKELETAL: Spine Normal, Non-tender, Normal range of motion, No swelling, no deformity, no clubbing, or cyanosis, the patient has no edema to bilateral lower extremities, dorsalis pedis pulses palpable bilaterally. NEUROLOGIC: The patient is awake, alert, oriented, responding to yes/no questions appropriately, moving all extremities, cranial nerve intact, normal strenght, normal power, normal coordination, normal gait. Allergies Coded Allergies: No Known Allergy (Unverified , 03/10/17) PMH Diabetes/hypertension/hyperlipidemia/hypoglycemia, renal insufficiency Social Hx No smoking no drinking, Family Hx Noncontributory Assessment/Plan Impression Hypoglycemia resolved/ Diabetes Hypertension Hyperlipidemia Plan Patient education done about diabetes, and hypoglycemia, patient blood sugar at present without any medication 103 109, patient advised to control the diet, increase exercise, Patient given a prescription for supply, patient is using her 's machine , will do before meals and at bedtime blood sugar, and patient to bring the blood sugar level to the physician, If the blood sugar is about 200 patient take half a milligram of Amaryl,/2 mg, and monitor blood sugar closely, Watch for hypoglycemia, Patient to follow with the primary care physician, Medications Home Meds Reported Medications Acetaminophen* (Acetaminophen*) 500 MG Extra Strength Tablet, 500 MG PO Q4H Y for PAIN AND OR ELEVATED TEMP, TAB 03/10/17 Benazepril Hcl* (Benazepril Hcl*) 20 Mg Tablet, 20 MG PO DAILY, #30 TAB 03/10/17 Famotidine* (Famotidine*) 20 Mg Tablet, 20 MG PO DAILY, #30 TAB 03/10/17 Ondansetron Hcl* (Ondansetron Hcl*) 4 Mg Tablet, 4 MG PO Q6H Y for NAUSEA AND/ OR VOMITING, TAB 03/10/17 Pravastatin Sodium* (Pravastatin Sodium*) 20 Mg Tablet, 20 MG PO HS, TAB 03/10/17 Gabapentin* (Gabapentin*) 100 Mg Capsule, 200 MG PO QHS, #180 CAP 03/10/17 Discontinued Reported Medications Ciprofloxacin Hcl* (Ciprofloxacin Hcl*) 500 Mg Tablet, 500 MG PO BID, #14 TAB 03/10/17 NETO FLETCHER MD March 20, 2017 16:05
== END 2017-03-20 16:44 | disposition home or self-care (01) ==
LOC: DCC 15:04
PROVIDERS: ATTEND Internal Medicine
DX: I10 Essential (primary) hypertension (principal); E78.5 Hyperlipidemia, unspecified; E16.2 Hypoglycemia, unspecified; E11.9 Type 2 diabetes mellitus without complications
CPT/HCPCS: 82962; G0463

== ENCOUNTER 2017-04-03 11:34 | Outpatient (CLI) | payer OTHER ==
[~2017-04-03] VITALS: Ht 157.5 cm; Wt 80.5 kg
[~2017-04-03 11:34] MED LIST changes: -CIPR500T4 PO
[2017-04-03 11:38] VITALS: BP 133/84; PULSE 78; RESP 16; Ht 157.5 cm; Wt 80.5 kg
--- NOTE | 2017-04-03 12:09 | PN ---
Date/Time of Note Date/Time of Note DATE: 04/03/17 TIME: 12:06 Outpatient Progress Note Chief Complaint Diabetes/hypertension/hyperlipidemia HPI Diabetes/no polydipsia polyuria hypoglycemia, patient blood sugar has been controlled without medication, patient has got all the blood sugar which is below 150 mostly around 100, patient has not taken medication since a hospitalization, patient did have a hypoglycemic attack, Hypertension/no headache or dizziness, no lightheadedness, no local focal weakness, Hyperlipidemia/no xanthoma, on medication, no side effect of medication, Review of Systems Const: No Fever, no chills, no Wt. loss, no Fatigue, normal appetite, no diaphoresis. Eyes: No pain, no discharge, no redness, no visual change, no foreign body. ENT: No pain, no bleeding, no congestion, no sore throat, no dysphagia, no discharge or rhinitis. Lymph: No adenopathy, no tender nodes, no lymphedema. Resp: No SOB, no cough, no sputum, no wheezing, no chest pain. CV: No chest pain, no palpitaions, no KILGORE, no PND, no edema. GI: Normal appetite, no pain, no nausea, no vomiting, no diarrhea, no blood, no constipation. : No frequency, no urgency, no dysuria, no hematuria, no flank pain, no discharge, no bleeding. Musc: No bone/joint pain, no back pain, no neck pain, no knee pain, no restricted ROM. Skin: No rash, no skin lesions, no erythema, no laceration, no bruising, no pruritus. Neuro: No ZAPATA, no dizziness, no syncope, no seizure, no focal-weakness. Endo: No polyuria, no polydypsia, no dry-skin, no temp-intolerance. Psych: No hallucinations, no depression, no anxiety, no suicidal ideation. Ext: No edema, no pain, no ulcer, no weakness. Physical Exam Vital Signs Date Time Temp Pulse Resp B/P Pulse Ox O2 Delivery O2 Flow Rate FiO2 04/03/17 11:38 98.6 78 16 133/84 96 Room Air General Appearance: A 56 year-old female who appears well-developed, well- nourished, in no acute distress. HEENT: Head normocephalic, atraumatic. Pupils equal, round, reactive to light and accommodate. Sclerae are no jaundice. Nasal turbinates pink without erythema or nasal discharge. Mucous membranes pink and moist without lesions. Oropharynx clear without any exudate or discharge. NECK: Supple. Trachea midline, No thyromegaly, No cervical lymphadenopathy, No mass, No carotid bruits, No JVD, Carotid pulses 2+ bilaterally. PULMONARY: Clear to auscultaion bilaterally, No retractions, Chest expansion symmetric bilaterally, no rales, no ronchi, no dulness on percussion. CARDIAC: Normal SI and S2, Regular rate and rythm, no murmur, gallop, or rub. GASTROINTESTINAL: Abdomen is soft, non-tender, Non Rigid, No distention, Positive bowel sounds x4 quadrants, Liver normal. SKIN: Warm, dry, no rash, no bruise, no echmosis. EXTREMITIES: Bilateral lower extremities normal, no edema, no phlabitus, pulse palpable, no contracture. MUSCULOSKELETAL: Spine Normal, Non-tender, Normal range of motion, No swelling, no deformity, no clubbing, or cyanosis, the patient has no edema to bilateral lower extremities, dorsalis pedis pulses palpable bilaterally. NEUROLOGIC: The patient is awake, alert, oriented, responding to yes/no questions appropriately, moving all extremities, cranial nerve intact, normal strenght, normal power, normal coordination, normal gait. Allergies Coded Allergies: No Known Allergy (Unverified , 03/10/17) PMH No change Social Hx No change Family Hx No change Assessment/Plan Impression Hypoglycemia resolved Diabetes/diet controlled, off medication, Hypertension Hyperlipidemia Plan Patient education done about diabetes, patient to follow the diet, 1500-calorie ADA diet, and increase exercise, patient should walk at least an hour, control the sugar, control the cholesterol, Blood sugar check every day and check the record and take the record to the primary care physician, Monitor for hypoglycemia, Patient encouraged to follow with the primary care physician, Medications Home Meds Reported Medications Acetaminophen* (Acetaminophen*) 500 MG Extra Strength Tablet, 500 MG PO Q4H Y for PAIN AND OR ELEVATED TEMP, TAB 03/10/17 Benazepril Hcl* (Benazepril Hcl*) 20 Mg Tablet, 20 MG PO DAILY, #30 TAB 03/10/17 Famotidine* (Famotidine*) 20 Mg Tablet, 20 MG PO DAILY, #30 TAB 03/10/17 Ondansetron Hcl* (Ondansetron Hcl*) 4 Mg Tablet, 4 MG PO Q6H Y for NAUSEA AND/ OR VOMITING, TAB 03/10/17 Pravastatin Sodium* (Pravastatin Sodium*) 20 Mg Tablet, 20 MG PO HS, TAB 03/10/17 Gabapentin* (Gabapentin*) 100 Mg Capsule, 200 MG PO QHS, #180 CAP 03/10/17 NETO FLETCHER MD Apr 03, 2017 12:09
== END 2017-04-03 17:00 | disposition home or self-care (01) ==
LOC: DCC 11:34
PROVIDERS: ATTEND Internal Medicine
DX: E11.649 Type 2 diabetes mellitus with hypoglycemia without coma (principal); I10 Essential (primary) hypertension; E78.5 Hyperlipidemia, unspecified
CPT/HCPCS: 82962; G0463